=== PATIENT | male | born 2000 | race Caucasian/White ===

== ENCOUNTER 2020-02-18 18:18 | Inpatient (IN) ==
[2020-02-18] MEDS ORDERED: ALBUTEROL 2.5 MG/3 ML NEB RESP TX PRN (21:31)
[2020-02-18] MEDS ORDERED: ONDANSETRON 4 MG/2 ML VIAL IV PRN (21:31)
[2020-02-19] MEDS: DEXT 5% NACL 0.9% KCL 20 MEQ 20 MEQ/1,000 ML BAG IV SCH ×2 (00:15→07:34)
[2020-02-19 06:03] LABS: Basophils % 0.7 % (0.0-0.8); Eosinophils # 0.3 10*3/uL (0.0-0.87); Eosinophils % 6.5 % (0.00-10.9); Hematocrit 42.1 VOL% (42.0-52.0); Hemoglobin 14.8 GM/DL (14.0-18.0); Immature Granulocytes % 0.9 %; Immature Granulocytes Absolute 0.04 #; Lymphocytes # 1.6 10*3/uL (1.4-4.0); Lymphocytes % 35.6 % (21.2-54.2); Mean Corpuscular HGB Conc 35.2 GM/DL (32-36); Mean Corpuscular Volume 88.3 FL (87-102); Mean Platelet Volume 9.6 FL (9.6-12.0); Monocytes % 12.8 % (1.7-12.7); Neutrophils % 43.5 % (38.7-73.9); Platelet Count 238 T/CUMM (130-400); Red Blood Count 4.77 MC/CUMM (3.8-5.5); Red Cell Distribution Width 12.8 % (9.3-17.3); White Blood Count 4.4 T/CUMM (4-12)
[2020-02-19 06:06] LABS: PT Patient Result 21.1 SECS (9.8-11.9)
[2020-02-19 06:41] LABS: Bilirubin,Direct 4.51 MG/DL (0.0-0.20); Bilirubin,Indirect 1.6 MG/DL (0.0-1.0); Bilirubin,Total 6.1 MG/DL (0.2-1.0); Osmolality,Calculated 276.4 MOS/KG (273-304); Total Protein 6.2 G/DL (6.4-8.3)
[2020-02-19 06:44] LABS: Eosinophils 5 % (0-10); Lymphocytes 37 % (20-55); Platelet Estimate Adequate; Segmented Neutrophils 51 % (50-85); Total Cells Counted 100
[2020-02-19 06:45] LABS: Atypical Lymphocytes Few
[2020-02-19] MEDS ORDERED: SODIUM CHLOR 0.9% KCL 40 MEQ 40 MEQ/1,000 ML BAG IV SCH (07:00)
[2020-02-19 07:36] LABS: Hepatitis B Core IgM Quant 0.16 Index; Hepatitis B Surface Ag Quant < 0.10 Index; Hepatitis B Surface Ag Result Negative (Negative); Hepatitis C Virus Ab Quant 0.02 Index; Hepatitis C Virus Ab Result Negative (Negative)
[2020-02-19] MEDS ORDERED: POTASSIUM CHLORIDE 20 MEQ TABLET PO ONE (11:00)
[2020-02-19 11:39] VITALS: BP 132/67
== END 2020-02-19 13:40 | disposition home or self-care (01) | DRG 443 ==
LOC: N.3E 20:23
PROVIDERS: ADMIT Internal Medicine; ATTEND Internal Medicine